=== PATIENT | male | born 1950 | race Caucasian/White ===

== ENCOUNTER 2016-04-26 22:44 | Inpatient (IN) | payer OTHER ==
[2016-04-26] MEDS ORDERED: CEFTRIAXONE 1 GM VIAL ONE (23:56)
[2016-04-26] MEDS ORDERED: AZITHROMYCIN 500 MG VIAL IV ONE (23:56)
[2016-04-26] MEDS ORDERED: SODIUM CHLORIDE 0.9% 100 ML IV ONE (23:57)
[2016-04-26] MEDS ORDERED: SODIUM CHLORIDE 0.9% 250 ML IV ONE (23:57)
[2016-04-27] VITALS (8 sets, daily range): BP systolic 108–134; RESP 16–18; TEMP 97.9–98.6; Wt 98.8 kg
[2016-04-27] MEDS ORDERED: SODIUM CHLORIDE 0.9% 1,000 ML ONE (00:23)
[2016-04-27] MEDS ORDERED: ONDANSETRON 4 MG VIAL ONE (01:21)
[2016-04-27] MEDS ORDERED: ASPIRIN 81 MG CHEW TAB ONE (01:21)
[2016-04-27] MEDS: DUONEB INH SCH ×6 (02:53→22:31)
[2016-04-27] MEDS ORDERED: SALINE FLUSH 10 ML FLUSH PRN (04:35)
[2016-04-27] MEDS: SODIUM CHLORIDE 0.9% FLUSH BAG 500 ML IV SCH (05:48)
[2016-04-27] MEDS: SALINE FLUSH 10 ML FLUSH SCH ×2 (07:45→20:31)
[2016-04-27] MEDS: ASPIRIN 81 MG CHEW TAB PO SCH (07:46)
[2016-04-27] MEDS: LEVOFLOXACIN 500 MG/100 ML 100 ML IV SCH (07:46)
[2016-04-27] MEDS ORDERED: METHYLPRED SOD SUCC 40 MG VIAL IV SCH (08:00)
[2016-04-27] MEDS ORDERED: Furosemide 20 MG/2 ML VIAL IV ONE (09:20)
[2016-04-27] MEDS: ENOXAPARIN 30 MG/0.3 ML SYR SUBQ SCH (09:20)
[2016-04-27] MEDS ORDERED: DEXTROSE 50% SYRINGE 50 ML IV PRN (09:45)
[2016-04-27] MEDS ORDERED: GLUCAGON 1 MG VIAL IM PRN (09:45)
[2016-04-27] MEDS: Atorvastatin 40 MG TAB PO SCH (10:05)
[2016-04-27] MEDS ORDERED: Aspirin 325 MG TAB PO ONE (10:35)
[2016-04-27] MEDS: Furosemide 20 MG/2 ML VIAL IV SCH ×2 (15:37→20:31)
[2016-04-27] MEDS: PANTOPRAZOLE 40 MG TAB PO SCH (20:31)
[2016-04-28] MEDS: DUONEB INH SCH ×7 (02:34→22:28)
[2016-04-28] MEDS: SODIUM CHLORIDE 0.9% FLUSH BAG 500 ML IV SCH (05:28)
[2016-04-28] MEDS ORDERED: CLOPIDOGREL 75 MG TAB PO ONE (07:45)
[2016-04-28 07:57] VITALS: BP_SYST 115; RESP 16; TEMP 99
[2016-04-28] MEDS: SALINE FLUSH 10 ML FLUSH SCH ×2 (08:26→19:13)
[2016-04-28] MEDS: ASPIRIN 81 MG CHEW TAB PO SCH (08:26)
[2016-04-28] MEDS: LEVOFLOXACIN 500 MG/100 ML 100 ML IV SCH (08:26)
[2016-04-28] MEDS: Furosemide 20 MG/2 ML VIAL IV SCH ×2 (08:26→20:12)
[2016-04-28] MEDS: ENOXAPARIN 30 MG/0.3 ML SYR SUBQ SCH (08:30)
[2016-04-28 12:21] VITALS: BP_SYST 116; RESP 16; TEMP 98.1
[2016-04-28] MEDS: hePARIN in D5W (40 UNITS/ML) 500 ML IV SCH (14:00)
[2016-04-28 15:04] VITALS: BP_SYST 114; RESP 16; TEMP 97.9
[2016-04-28 19:34] VITALS: BP_SYST 125; RESP 18; TEMP 98.3
[2016-04-28] MEDS: Atorvastatin 40 MG TAB PO SCH (19:45)
[2016-04-28] MEDS: PANTOPRAZOLE 40 MG TAB PO SCH (19:45)
[2016-04-28 23:14] VITALS: BP_SYST 127; RESP 18; TEMP 98.4
[2016-04-29] MEDS: DUONEB INH SCH ×6 (02:48→22:35)
[2016-04-29 03:55] VITALS: BP_SYST 126; RESP 18; TEMP 97.8
[2016-04-29] MEDS: SODIUM CHLORIDE 0.9% FLUSH BAG 500 ML IV SCH (05:22)
[2016-04-29] MEDS ORDERED: MISSING DOSE XX ONE (06:00)
[2016-04-29 07:21] VITALS: BP_SYST 129; RESP 18; TEMP 98.2
[2016-04-29] MEDS: SALINE FLUSH 10 ML FLUSH SCH ×2 (08:00→20:17)
[2016-04-29] MEDS: hePARIN in D5W (40 UNITS/ML) 500 ML IV SCH (08:41)
[2016-04-29] MEDS ORDERED: CLOPIDOGREL 75 MG TAB PO SCH ×2 (09:00→13:15)
[2016-04-29] MEDS: Furosemide 20 MG/2 ML VIAL IV SCH (09:50)
[2016-04-29] MEDS: ASPIRIN 81 MG CHEW TAB PO SCH (09:51)
[2016-04-29] MEDS: LEVOFLOXACIN 500 MG/100 ML 100 ML IV SCH (09:51)
[2016-04-29 11:00] VITALS: BP_SYST 138; RESP 18; TEMP 98.3
[2016-04-29] MEDS ORDERED: CLOPIDOGREL 75 MG TAB PO ONE (13:10)
[2016-04-29] MEDS: METOPROLOL TART 25 MG TAB PO SCH ×2 (14:00→20:17)
[2016-04-29 15:24] VITALS: BP_SYST 137; RESP 16; TEMP 97.5
[2016-04-29] MEDS: Furosemide 40 MG/4 ML VIAL IV SCH (16:14)
[2016-04-29 19:00] VITALS: BP_SYST 125; RESP 18; TEMP 97.5
[2016-04-29] MEDS: Atorvastatin 40 MG TAB PO SCH (20:17)
[2016-04-29] MEDS: PANTOPRAZOLE 40 MG TAB PO SCH (20:17)
[2016-04-29 23:00] VITALS: BP_SYST 126; RESP 18; TEMP 97.9
[2016-04-30] MEDS ORDERED: MISSING DOSE XX ONE ×2 (00:10→08:30)
[2016-04-30] MEDS: hePARIN in D5W (40 UNITS/ML) 500 ML IV SCH (00:26)
[2016-04-30] MEDS: DUONEB INH SCH ×6 (02:46→22:24)
[2016-04-30 03:00] VITALS: BP_SYST 122; RESP 18; TEMP 98.1
[2016-04-30 07:33] VITALS: BP_SYST 120; RESP 18; TEMP 97.7
[2016-04-30] MEDS: ASPIRIN 81 MG CHEW TAB PO SCH (08:38)
[2016-04-30] MEDS: SALINE FLUSH 10 ML FLUSH SCH ×2 (08:38→20:05)
[2016-04-30] MEDS: Furosemide 40 MG/4 ML VIAL IV SCH ×2 (08:38→17:06)
[2016-04-30] MEDS: CLOPIDOGREL 75 MG TAB PO SCH (08:39)
[2016-04-30] MEDS: METOPROLOL TART 25 MG TAB PO SCH ×2 (08:39→20:04)
[2016-04-30] MEDS: LEVOFLOXACIN 500 MG/100 ML 100 ML IV SCH (08:40)
[2016-04-30] MEDS: SODIUM CHLORIDE 0.9% FLUSH BAG 500 ML IV SCH (08:40)
[2016-04-30 11:31] VITALS: BP_SYST 109; RESP 18; TEMP 97.9
[2016-04-30] MEDS ORDERED: ONDANSETRON 4 MG VIAL IV PUSH PRN (15:20)
[2016-04-30] MEDS ORDERED: ALU/MAG/SIM 30 ML UDC PO PRN (15:20)
[2016-04-30 15:52] VITALS: BP_SYST 111; RESP 18; TEMP 98.2
[2016-04-30 19:21] VITALS: BP_SYST 114; RESP 18
[2016-04-30] MEDS: PANTOPRAZOLE 40 MG TAB PO SCH (20:05)
[2016-04-30] MEDS: Atorvastatin 40 MG TAB PO SCH (20:05)
[2016-04-30 23:22] VITALS: BP_SYST 109; RESP 18; TEMP 97.5
[2016-05-01] MEDS: DUONEB INH SCH ×4 (02:12→14:30)
[2016-05-01 03:06] VITALS: BP_SYST 109; RESP 18; TEMP 97.9
[2016-05-01 07:25] VITALS: BP_SYST 110; RESP 20; TEMP 97.1
[2016-05-01] MEDS: SALINE FLUSH 10 ML FLUSH SCH (08:24)
[2016-05-01] MEDS: SODIUM CHLORIDE 0.9% FLUSH BAG 500 ML IV SCH (08:24)
[2016-05-01] MEDS: ASPIRIN 81 MG CHEW TAB PO SCH (08:25)
[2016-05-01] MEDS: LEVOFLOXACIN 500 MG/100 ML 100 ML IV SCH (08:25)
[2016-05-01] MEDS: Furosemide 40 MG/4 ML VIAL IV SCH (08:25)
[2016-05-01] MEDS: CLOPIDOGREL 75 MG TAB PO SCH (08:25)
[2016-05-01] MEDS: METOPROLOL TART 25 MG TAB PO SCH (08:25)
[2016-05-01 11:07] VITALS: BP_SYST 111; RESP 20; TEMP 97.8
[2016-05-01 14:24] VITALS: BP_SYST 111; RESP 20; TEMP 97.8
== END 2016-05-01 14:48 | disposition home or self-care (01) | DRG 280 ==
LOC: ENRESERVTM → ENRESERVDT → ER 22:44 → ENPENDDIS 04-27 01:10 → EMR 04-27 01:10 → 4THE 04-27 02:13
PROVIDERS: ADMIT Internal Medicine; ATTEND Internal Medicine
DX: I21.11 ST elevation (STEMI) myocardial infarction involving right coronary artery (principal); I50.21 Acute systolic (congestive) heart failure; N17.9 Acute kidney failure, unspecified; J18.9 Pneumonia, unspecified organism; E11.22 Type 2 diabetes mellitus with diabetic chronic kidney disease; N18.4 Chronic kidney disease, stage 4 (severe); I13.0 Hypertensive heart and chronic kidney disease with heart failure and stage 1 through stage 4 chronic kidney disease, or unspecified chronic kidney disease; N39.0 Urinary tract infection, site not specified; G35 Multiple sclerosis; Z79.84 Long term (current) use of oral hypoglycemic drugs; E11.65 Type 2 diabetes mellitus with hyperglycemia; K21.9 Gastro-esophageal reflux disease without esophagitis; Z85.46 Personal history of malignant neoplasm of prostate; Z92.3 Personal history of irradiation; Z79.82 Long term (current) use of aspirin; Z91.14 Patient's other noncompliance with medication regimen
CPT/HCPCS: 36415; 36600; 71010; 71020; 71250; 80048; 80053; 80061; 80069; 81001; 81003; 82550; 82553; 82570; 82803; 82947; 83036; 83605; 83735; 83880; 84156; 84439; 84443; 84484; 85025; 85610; 85730; 87040; 93005; 93306; 94640; 94799; 96361; 96365; 96366; 99223; 99232; 99233